=== PATIENT | female | born 1950 | race Two or more races ===

== ENCOUNTER 2021-03-25 08:35 | Outpatient (CLI) | payer OTHER ==
[~2021-03-25 08:35] MED LIST: CHEST CONG100 MG/51 PO; PRELONE15 MG/5 ML PO; PROVENTIL S2 MG/5 ML PO
== END 2021-03-25 08:40 | disposition home or self-care (01) ==
LOC: PPH VACUNA 08:35
PROVIDERS: ATTEND Emergency Medicine Pediatric Emergency Medicine
DX: Z23 Encounter for immunization (principal)

== ENCOUNTER 2021-05-19 09:08 | Emergency (ER) | payer OTHER ==
[~2021-05-19] VITALS: Ht 154.9 cm; Wt 54.0 kg
[2021-05-19] MEDS ORDERED: SIMVASTATIN5 MG PO (09:24)
[2021-05-19] MEDS ORDERED: NORVASC10 MG PO (09:24)
[2021-05-19] MEDS ORDERED: MULTI VITAMIN1 EACH PO (09:25)
== END 2021-05-19 13:31 | disposition home or self-care (01) ==
LOC: ER 09:08
DX: S82.62XA Displaced fracture of lateral malleolus of left fibula, initial encounter for closed fracture (principal); S93.492A Sprain of other ligament of left ankle, initial encounter; W10.8XXA Fall (on) (from) other stairs and steps, initial encounter; Y93.89 Activity, other specified; Y92.098 Other place in other non-institutional residence as the place of occurrence of the external cause; Y99.8 Other external cause status

== ENCOUNTER 2021-05-27 08:46 | Outpatient (CLI) | payer OTHER ==
[~2021-05-27 08:46] MED LIST changes: +MULTI VITAMIN1 EACH PO; +NORVASC10 MG PO; +SIMVASTATIN5 MG PO
== END 2021-05-27 08:53 | disposition home or self-care (01) ==
LOC: RAD 08:46
PROVIDERS: ATTEND Orthopaedic Surgery Hand Surgery
DX: M85.872 Other specified disorders of bone density and structure, left ankle and foot (principal)

== ENCOUNTER 2021-06-03 12:24 | Outpatient (CLI) | payer OTHER | END 2021-06-03 12:33 | disposition home or self-care (01) | LOC: RAD 12:24 | PROVIDERS: ATTEND Orthopaedic Surgery Hand Surgery | DX: R52 Pain, unspecified (principal) ==

== ENCOUNTER 2021-09-27 08:00 | Outpatient (CLI) | payer OTHER | END 2021-09-27 08:30 | disposition home or self-care (01) | LOC: PPH VACUNA 08:00 | PROVIDERS: ATTEND Emergency Medicine Pediatric Emergency Medicine | DX: Z23 Encounter for immunization (principal) ==

== ENCOUNTER 2021-12-02 08:07 | Outpatient (CLI) | payer OTHER | END 2021-12-02 08:16 | disposition home or self-care (01) | LOC: RAD 08:07 | PROVIDERS: ATTEND Internal Medicine Pulmonary Disease | DX: J30.1 Allergic rhinitis due to pollen (principal); J45.31 Mild persistent asthma with (acute) exacerbation; U07.1 COVID-19 ==

== ENCOUNTER 2021-12-15 20:24 | Emergency (ER) | payer OTHER ==
[~2021-12-15] VITALS: Ht 154.9 cm; Wt 54.9 kg
== END 2021-12-15 21:46 | disposition home or self-care (01) ==
LOC: ER 20:24
DX: M25.561 Pain in right knee (principal); Z88.2 Allergy status to sulfonamides

== ENCOUNTER 2021-12-22 09:29 | Outpatient (CLI) | payer OTHER | END 2021-12-22 09:31 | disposition home or self-care (01) | LOC: NUCLEAR 09:29 | PROVIDERS: ATTEND Physical Medicine & Rehabilitation | DX: M81.0 Age-related osteoporosis without current pathological fracture (principal); Z88.2 Allergy status to sulfonamides ==

== ENCOUNTER 2022-08-18 09:07 | Outpatient (CLI) | payer OTHER | END 2022-08-18 11:09 | disposition home or self-care (01) | LOC: RAD 09:07 | PROVIDERS: ATTEND Internal Medicine Pulmonary Disease | DX: J45.31 Mild persistent asthma with (acute) exacerbation (principal) ==

== ENCOUNTER 2022-09-28 09:08 | Emergency (ER) | payer OTHER ==
[~2022-09-28] VITALS: Ht 154.9 cm; Wt 55.8 kg
== END 2022-09-28 14:04 | disposition home or self-care (01) ==
LOC: ER 09:08
DX: S93.601A Unspecified sprain of right foot, initial encounter (principal); W18.39XA Other fall on same level, initial encounter; Y93.89 Activity, other specified; Y92.018 Other place in single-family (private) house as the place of occurrence of the external cause; I10 Essential (primary) hypertension; E78.00 Pure hypercholesterolemia, unspecified; Z88.2 Allergy status to sulfonamides

== ENCOUNTER → 2023-05-02 | Emergency (ER) | payer OTHER | END | disposition left against medical advice (07) | LOC: ER 17:09 | DX: Z53.21 Procedure and treatment not carried out due to patient leaving prior to being seen by health care provider (principal) ==

== ENCOUNTER 2025-02-26 13:04 | Outpatient (CLI) | payer OTHER | END 2025-02-26 13:09 | disposition home or self-care (01) | LOC: RAD 13:04 | PROVIDERS: ATTEND Physical Medicine & Rehabilitation | DX: M25.541 Pain in joints of right hand (principal) ==

== ENCOUNTER 2025-04-27 08:44 | Emergency (ER) | payer OTHER ==
[~2025-04-27] VITALS: Ht 154.9 cm; Wt 54.9 kg
[2025-04-27] MEDS ORDERED: ORPHENADRINE CITRATE 30 MG/ML AMPUL IM ONE (10:00)
[2025-04-27] MEDS ORDERED: DEXAMETHASONE SODIUM PHOSP/PF 10 MG/ML VIAL IJ ONE (10:00)
[2025-04-27] MEDS ORDERED: KETOROLAC TROMETHAMINE 30 MG VIAL IM ONE (10:00)
[2025-04-27] MEDS ORDERED: KETOROLAC TROMETHAMINE 30 MG VIAL ONE (10:06)
[2025-04-27] MEDS ORDERED: DEXAMETHASONE SODIUM PHOSPHATE 4 MG/ML VIAL ONE (10:06)
[2025-04-27] MEDS ORDERED: ORPHENADRINE CITRATE 30 MG/ML AMPUL ONE (10:06)
[2025-04-27] MEDS ORDERED: ATORVASTATIN CA80 MG PO (14:41)
[2025-04-27] MEDS ORDERED: PLAVIX75 MG PO (14:41)
[2025-04-27] MEDS ORDERED: TYLENOL ARTHRI650 MG PO (14:41)
== END 2025-04-27 15:56 | disposition home or self-care (01) ==
LOC: ER 08:44
DX: S86.812A Strain of other muscle(s) and tendon(s) at lower leg level, left leg, initial encounter (principal); I87.2 Venous insufficiency (chronic) (peripheral); Z88.2 Allergy status to sulfonamides